=== PATIENT | male | born 1970 | race Caucasian/White ===

== ENCOUNTER 2021-02-08 21:58 | Emergency (ER) | payer BC ==
[~2021-02-08] VITALS: Ht 182.9 cm; Wt 89.4 kg
[2021-02-08] MEDS ORDERED: TOPROL XL100 MG PO (22:14)
[2021-02-08] MEDS ORDERED: LISINOPRIL20 MG PO (22:14)
[2021-02-08] MEDS ORDERED: ZOCOR 10 MG TAB10 MG PO (22:15)
[2021-02-08] MEDS ORDERED: HCT PO (22:15)
[2021-02-08] MEDS ORDERED: NEXIUM 40 MG CA40 M1 PO (22:15)
[2021-02-08] MEDS ORDERED: MOBIC7.5 MG PO (22:44)
[2021-02-08 23:05] VITALS: BP 144/91
== END 2021-02-08 23:06 | disposition home or self-care (01) ==
LOC: ER 21:58
DX: S99.921A Unspecified injury of right foot, initial encounter (principal); I10 Essential (primary) hypertension; Z79.1 Long term (current) use of non-steroidal anti-inflammatories (NSAID); Z79.899 Other long term (current) drug therapy; W54.1XXA Struck by dog, initial encounter; Y93.89 Activity, other specified; Y92.89 Other specified places as the place of occurrence of the external cause; Y99.8 Other external cause status